=== PATIENT | male | born 1965 | race Caucasian/White ===

== ENCOUNTER 2019-07-27 12:02 | Emergency (ER) | payer OTHER ==
--- NOTE | 2019-07-27 14:06 | ED Physician Documentation ---
PD HPI FOCAL NEURO - Stated complaint Stated Complaint: DIZZINESS,VISIUAL DISTURBANCE - Chief complaint Chief Complaint: Heent - History obtained from History obtained from: Patient - History of Present Illness Timing - onset: Today (54-year-old gentleman in excellent health generally, he had an episode of vertigo that lasted several days of about a year ago. Today he was riding his bike and suddenly felt vertiginous again, although it was less severe than it was last year but he noticed a disequilibrium and diplopia while it was going on. Symptoms lasted severely for maybe an hour an hour there is no associated headache or trouble breathing. No chest pain.) Review of Systems Ten Systems: 10 systems reviewed and negative Constitutional: denies: Fever, Chills Nose: denies: Rhinorrhea / runny nose, Congestion Throat: denies: Dental pain / toothache, Sore throat Cardiac: denies: Chest pain / pressure PD PAST MEDICAL HISTORY - Past Medical History Past Medical History: No - Past Surgical History Past Surgical History: Yes - Present Medications Home Medications: Ambulatory Orders Medication Instructions Recorded Confirmed No Known Home Medications 07/27/19 07/27/19 - Allergies Allergies/Adverse Reactions: Allergies Allergy/AdvReac Type Severity Reaction Status Date / Time No Known Drug Allergies Allergy Verified 07/27/19 12:13 - Social History Does the pt smoke?: No Smoking Status: Never smoker Does the pt drink ETOH?: Yes Does the pt have substance abuse?: No PD ED PE NORMAL - Vitals Vital signs reviewed: Yes - General General: Alert and oriented X 3, No acute distress - HEENT HEENT: PERRL, EOMI - Neck Neck: Supple, no meningeal sign, No bony TTP - Cardiac Cardiac: RRR, No murmur - Respiratory Respiratory: No respiratory distress, Clear bilaterally - Abdomen Abdomen: Normal bowel sounds, Soft, Non tender - Back Back: No CVA TTP, No spinal TTP - Neuro Neuro: Alert and oriented X 3, No motor deficit, No sensory deficit, Normal spee ch, Other (He has very mild ataxia on left [id number] testing, I do not see any abnormality and [id number] testing. He is able to walk, it appears grossly normal but he describes it is slightly wobbly.) Eye Opening: Spontaneous Motor: Obeys Commands Verbal: Oriented GCS Score: 15 - Psych Psych: Normal mood, Normal affect NIHSS - Time Time: 13:55 - Level of Consciousness Level of consciousness: (0) Alert, Keenly responsive LOC Questions: (0) Answers both Q's correct LOC Commands: (0) Performs both correctly - Gaze Best Gaze: (0) Normal - Visual Visual: (0) No loss - Facial Palsy Facial Palsy: (0) Normal, symmetrical movement - Motor Arms (both separate) Motor Arm (right): (0) No drift Motor Arm (left): (0) No drift - Motor Legs (both separate) Motor Leg (right): (0) No drift Motor Leg (left): (0) No drift - Limb Ataxia Limb Ataxia: (1) Present in 1 limb - Sensory Sensory: (0) Normal - Best Language Best Language: (0) No aphasia - Dysarthria Dysarthria: (0) Normal - Extinction and Inattention (formally neg Extinction and inattention: (0) No abnormality - Total Score/Results Total Score/Result: 1 Results - Vitals Vitals: Vital Signs - 24 hr 07/27/19 07/27/19 07/27/19 12:10 13:41 15:40 Temperature 36.8 C Heart Rate 64 56 L 64 Respiratory 18 15 24 Rate Blood Pressure 143/78 H 114/77 117/67 O2 Saturation 99 97 98 Oxygen O2 Source Room air - EKG (time done) 1408 Rate: Rate (enter#) (53) Rhythm: NSR [place]: Normal Intervals: Normal CT QRS: LVH Ischemia: Normal ST segments Computer interpretation: Agree with computer - Labs Labs: Laboratory Tests 07/27/19 07/27/19 07/27/19 14:52 14:52 14:52 WBC 9.6 RBC 4.57 L Hgb 14.9 Hct 43.3 MCV 94.7 H MCH 32.6 H MCHC 34.4 RDW 11.9 L Plt Count 146 MPV 12.4 H Neut # (Auto) 8.1 H Lymph # (Auto) 0.8 L [place] # (Auto) 0.5 Eos # (Auto) 0.1 Baso # (Auto) 0.0 Absolute Nucleated RBC 0.00 Nucleated RBC % 0.0 PT 12.2 INR 1.1 Sodium 138 Potassium 3.8 Chloride 104 Carbon Dioxide 28 Anion Gap 6.0 BUN 21 H Creatinine 0.9 Estimated GFR (MDRD) 88 L Glucose 100 Calcium 8.5 Total Bilirubin 0.8 AST 20 ALT 17 Alkaline Phosphatase 67 Total Protein 6.2 L Albumin 4.1 Globulin 2.1 Albumin/Globulin Ratio 2.0 Lipase 32 PD MEDICAL DECISION MAKING - ED course ED course: 54-year-old gentleman with ataxia and diplopia associated with vertigo. Symptoms were improving and fairly mild on examination so TPA was not further considered. CT and CT angiography of the head and neck were negative for signs of stroke or large vessel occlusion, that said if this is a CVA would be exp ected to be fairly small and posterior. We do not have MRI available Tuesday through Tuesday here so after discussion with the patient decision was made to transfer for urgent MRI. However after further discussion the patient really did not want to be transferred and understands there is a small risk of posterior stroke. [place] He understands he is welcome to return anytime if worse. Departure - Departure Disposition: 01 Home, Self Care Clinical Impression: Ataxia, Diplopia Condition: Stable Record reviewed to determine appropriate education?: Yes Instructions: ED Transient Ischemic Attack Comments: Return if worsening, take a baby aspirin a day, [place]
[2019-07-27] MEDS ORDERED: IOVERSOL 320 100 ML VIAL IVP ONE ×2 (14:28→16:06)
[2019-07-27 15:27] LABS: BASOPHILS % (AUTO) 0.3 %; EOSINOPHILS # (AUTO) 0.1 10^3/uL (0.0-0.7); EOSINOPHILS % (AUTO) 1.4 %; HGB - HEMOGLOBIN 14.9 g/dL (14.0-18.0); LYMPHOCYTES # (AUTO) 0.8 10^3/uL (1.5-3.5); LYMPHOCYTES % (AUTO) 8.8 %; MEAN CORPUSCULAR HEMOGLOBIN 32.6 pg (27.0-31.0); MEAN CORPUSCULAR HGB CONC 34.4 g/dL (32.0-36.0); MEAN CORPUSCULAR VOLUME 94.7 fL (80.0-94.0); MEAN PLATELET VOLUME 12.4 fL (7.4-11.4); MONOCYTES # (AUTO) 0.5 10^3/uL (0.0-1.0); MONOCYTES % (AUTO) 4.9 %; NEUTROPHILS # (AUTO) 8.1 10^3/uL (1.5-6.6); NEUTROPHILS % (AUTO) 84.3 %; PLT - PLATELET COUNT 146 10^3/uL (130-450); RED BLOOD COUNT 4.57 10^6/uL (4.70-6.10); RED CELL DISTRIBUTION WIDTH 11.9 % (12.0-15.0); WHITE BLOOD COUNT 9.6 x10^3/uL (4.8-10.8)
[2019-07-27 15:34] LABS: INR 1.1 (0.8-1.2); PT - PROTHROMBIN TIME 12.2 secs (9.9-12.6)
[2019-07-27 15:41] LABS: ALBUMIN 4.1 g/dL (3.2-5.5); BILIRUBIN,TOTAL 0.8 mg/dL (0.2-1.0); CALCIUM 8.5 mg/dL (8.5-10.3); CREATININE 0.9 mg/dL (0.6-1.2); TOTAL PROTEIN 6.2 g/dL (6.7-8.2)
--- NOTE | 2019-07-27 16:32 | CT Report ---
Reason: CVA sx, vertigo, L ataxia Procedure Date: 07/27/2019 Accession Number: [id number] / [id number] Procedure: CT - ANGIO NECK W CPT Code: Final Report FULL RESULT: EXAM: CT ANGIOGRAM NECK EXAM DATE: 07/27/2019 04:00 PM. CLINICAL HISTORY: CVA sx, vertigo, left ataxia. COMPARISON: None. TECHNIQUE: Routine axial helical imaging was performed from the skull base through the aortic arch. Reconstructions: Routine multiplanar 3D MIP reconstructions. IV Contrast: OPTIRAY 320. Evaluation of arterial stenosis is based on a NASCET method of measurement. In accordance with CT protocol optimization, one or more of the following dose reduction techniques were utilized for this exam: automated exposure control, adjustment of mA and/or KV based on patient size, or use of iterative reconstructive technique. FINDINGS: Right Carotid: The common carotid, internal carotid, and external carotid arteries are widely patent. There is moderate tortuosity of the right cervical ICA. No stenosis. Left Carotid: The common carotid, internal carotid, and external carotid arteries are widely patent. There is mild tortuosity of the left cervical ICA. No stenosis. Vertebrals: The vertebrobasilar system shows no stenoses. Intracranial Circulation: Normal. No stenoses or aneurysms of the visualized vessels. Other: The bones, soft tissues, and lung apices are within normal limits. IMPRESSION: Normal neck CT angiogram. No hemodynamically significant stenoses. RADIA
--- NOTE | 2019-07-27 16:37 | CT Report ---
Reason: CVA sx, vertigo, L ataxia Procedure Date: 07/27/2019 Accession Number: [id number] / [id number] Procedure: CT - ANGIO HEAD W/WO CPT Code: Final Report FULL RESULT: EXAM: CT ANGIOGRAM HEAD. CT SCAN OF THE HEAD WITHOUT AND WITH CONTRAST. EXAM DATE: 07/27/2019 04:00 PM CLINICAL HISTORY: CVA sx, vertigo, L ataxia. COMPARISON: None. TECHNIQUE: - CT Scan Head: Using a multidetector scanner, axial images were acquired from the foramen magnum to the skull vertex prior to and following contrast administration. - CT Angiogram: Using a multidetector scanner, high-resolution axial images were acquired from the skull base through vertex following rapid infusion of intravenous contrast. Reformats: Multiplanar MIP reformats were reconstructed. NASCET criteria used for stenosis measurement. IV Contrast: OPTIRAY 320. In accordance with CT protocol optimization, one or more of the following dose reduction techniques were utilized for this exam: automated exposure control, adjustment of mA and/or KV based on patient size, or use of iterative reconstructive technique. FINDINGS: NON-CONTRAST HEAD: Parenchyma: No intraparenchymal hemorrhage. No evidence of mass, midline shift, or CT findings of infarction. Reynolds-white differentiation is distinct. Extraaxial Spaces: Normal for age. No subdural or epidural collections identified. Ventricles: Normal in size and position. Sinuses and orbits: Imaged paranasal sinuses, orbits, and mastoids show no significant abnormality. Bones: No evidence of fracture or calvarial defect. Other: None. POST-CONTRAST HEAD: No abnormal enhancement. CT ANGIOGRAM HEAD: No large vessel occlusion. No significant intracranial stenosis. type origins of bilateral posterior cerebral arteries. No aneurysm. DURAL VENOUS SINUSES AND MAJOR CENTRAL VEINS: Patent. IMPRESSION: CT Head: Normal head CT. No abnormal enhancement. CTA Head: Normal CTA of the head. No large vessel occlusion or significant intracranial stenosis. RADIA
[2019-07-27 19:49] VITALS: BP 143/67
== END 2019-07-27 17:45 | disposition home or self-care (01) ==
LOC: ED 12:02
DX: R27.0 Ataxia, unspecified (principal); H53.2 Diplopia
CPT/HCPCS: 36415; 70496; 70498; 80053; 83690; 85025; 85610; 93005; 99284; Q9967

== ENCOUNTER 2019-09-24 08:17 | Outpatient (CLI) | payer OTHER ==
[2019-09-24] MEDS ORDERED: GADOBUTROL 7.5 MMOL/7.5 ML VIAL ONE (08:39)
[2019-09-24] MEDS ORDERED: GADOBUTROL 7.5 MMOL/7.5 ML VIAL IVP ONE (09:20)
--- NOTE | 2019-09-24 13:41 | MRI Report ---
PROCEDURE: Brain W/WO INDICATIONS: DIPLOPIA CONTRAST: IV CONTRAST: Gadavist ml: 6.5 TECHNIQUE: Noncontrast axial T1 spin echo, axial T2 fast spin echo, sagittal and axial FLAIR, coronal T2 fast sp in echo, axial gradient echo, axial diffusion and ADC through the brain. After the administration of contrast, axial and coronal T1 spin echo with fat saturation through the brain. COMPARISON: CTA Head and Neck FINDINGS: Image quality: Excellent. CSF spaces: Basal cisterns are patent. No extra-axial fluid collections. Ventricles are normal in size and shape. Brain: No midline shift. No intracranial bleeds or masses. No abnormal intracranial enhancement. There is cerebral volume loss for age. There is periventricular white matter chronic small vessel is chemic change. The brainstem appears normal. Diffusion-weighted images demonstrate no acute ischemi c insults. No chronic ischemic insults. Normal intravascular flow voids are present. Mild scattered periventricular and subcortical white matter hyperintensities. Skull and face: Calvarial marrow is normal in signal. Orbits appear normal. Sinuses: Sinuses demonstrate mild pansinus mucosal thickening. Mucous retention cyst vs polyp in th e right maxillary sinus. IMPRESSION: 1. No acute intracranial process. 2. Mild scattered periventricular and subcortical white matter hyperintensities. These are overall no nspecific. They could be related to early changes of chronic microvascular ischemia, demyelinating di sease, vasculitis or migraine sequela. Reviewed by: Chastity Gamboa MD on 09/24/2019 1:39 PM PDT Approved by: Chastity Gamboa MD on 09/24/2019 1:39 PM PDT Station ID: [id number]
== END 2019-09-24 08:18 | disposition home or self-care (01) ==
LOC: DI 08:17
PROVIDERS: ATTEND Internal Medicine
DX: H53.2 Diplopia (principal)
CPT/HCPCS: 70553; A9585